=== PATIENT | female | born 1965 | race Caucasian/White ===

== ENCOUNTER 2018-07-05 13:01 | Emergency (ER) | payer OTHER ==
--- NOTE | 2018-07-05 13:04 | PDOC ---
History of Present Illness - General Chief Complaint: Laceration Stated Complaint: RIGHT THUMB CUT Time Seen by Provider: 07/05/18 13:04 - History of Present Illness Initial Comments: 53yo F presenting with right thumb laceration. Patient was cutting an eggplant with a kitchen mandolin when the tip of her thumb was sliced and started bleeding. She applied pressure to the area. No previous injury to finger or hand. Endorses normal range of motion and sensation. No numbness or tingling. Denies anticoagulant use. Patient is right-handed. Unknown when last tetanus shot was. Past History - Past Medical History Allergies/Adverse Reactions: Allergies Allergy/AdvReac Type Severity Reaction Status Date / Time No Known Allergies Allergy Verified 07/05/18 13:09 Home Medications: Ambulatory Orders Nebivolol HCl [Bystolic] 2.5 mg PO DAILY 07/05/18 Paroxetine HCl [Paxil] 20 mg PO DAILY 07/05/18 Review of Systems - Review of Systems Comments:: Constitutional: no fever, no chills Cardiovascular: no chest pain Respiratory: no shortness of breath Gastrointestinal: no abdominal pain, no nausea, no vomiting Skin: no rash, no itching Neurologic: no headache, no dizziness *Physical Exam - Physical Exam Comments: General: Awake, alert, and fully oriented, in no acute distress Head: no signs of trauma Eyes: EOMI ENT: Moist mucus membranes, Neck: Normal ROM, supple Lungs: Lungs clear, Normal breath sounds Cardio: Regular rhythm, S1 and S2 present Abdomen: Soft, nontender Extremities: Normal range of motion, Distal pulses present; 7mm x 3mm laceration on distal phalange of R. thumb with bleeding; Nail bed intact, absent foreign body. Neg bony visualization/deformity. Radial pulse intact. Neg snuff box tenderness. Normal ROM. SKIN: Warm, Dry, normal turgor Neurologic: Cranial nerves II through XII grossly intact. Normal speech Medical Decision Making - Medical Decision Making 53yo F presenting with thumb laceration -surgicel and wound dressing: wound achieved hemostasis; patient tolerated procedure well. -Boostrix *DC/Admit/Observation/Transfer Diagnosis at time of Disposition: Laceration - Discharge Dispostion Disposition: HOME Condition at time of disposition: Improved - Referrals Referrals: Delroy Haji MD [Primary Care Provider] - - Patient Instructions Printed Discharge Instructions: DI for Laceration Repair Additional Instructions: You came to the ED for laceration of your right thumb. The wound was cleaned and you received surgicel Keep the area clean. RETURN to the ED if you experience: redness or hardness around the wound, pain or tenderness, a red streak, yellow or green discharge oozing from the wound, fever or chills. - Post Discharge Activity
[2018-07-05 13:19] VITALS: BP 135/85; PULSE 68; TEMP 98.5; BMI 25.8
[2018-07-05] MEDS ORDERED: DIPHTH,PERTUSS(ACELL),TET 0.5 ML DISP.SYRIN IM ONE (13:20)
--- NOTE | 2018-07-05 13:32 | PDOC ---
Attending Attestation - Resident Resident Name: Sheila Cuevas - ED Attending Attestation I have performed the following: I have examined & evaluated the patient, The case was reviewed & discussed with the resident, I agree w/resident's findings & plan, Exceptions are as noted - HPI HPI: 07/05/18 13:28 53 yo F s/p injury to the Right Thumb while using the mandolin Soft tissue defect and bleeding noted since then - Physicial Exam PE: 07/05/18 13:29 Awake and alert, oriented x 3 Right thumb radial side of the thumb with soft tissue defect (+) bleeding noted 2+ RP, 2+ UP sensation in tact - Medical Decision Making 07/05/18 13:30 Laceration to the thumb Wound irrigated thoroughly Boostrix given surgicel to the area of bleeding D/c home Local wound care clinical Impression: laceration, initial presentation
== END 2018-07-05 13:59 | disposition home or self-care (01) ==
LOC: FER 13:01
PROC: 0HQFXZZ Repair Right Hand Skin, External Approach (ICD-10-PCS; principal; 2018-07-05)
PROC: 3E0234Z Introduction of Serum, Toxoid and Vaccine into Muscle, Percutaneous Approach (ICD-10-PCS; 2018-07-05)
DX: S61.011A Laceration without foreign body of right thumb without damage to nail, initial encounter (principal); W26.0XXA Contact with knife, initial encounter; Y93.G1 Activity, food preparation and clean up; Y92.000 Kitchen of unspecified non-institutional (private) residence as the place of occurrence of the external cause
CPT/HCPCS: 90715; 99282-25

== ENCOUNTER 2022-09-12 04:56 | Day surgery (SDC) | payer OTHER ==
[2022-09-08 08:07] VITALS: BMI 27.3
[2022-09-12] MEDS ORDERED: EPINEPHrine 1:10,000 (P-F SYR) 1 MG/10 ML DISP.SYRIN ONE (10:03)
[2022-09-12 10:24] VITALS: BP 114/59; PULSE 81; RESP 16
[2022-09-12 12:38] VITALS: TEMP 98
== END 2022-09-12 10:42 | disposition home or self-care (01) ==
LOC: JASU-ENDO 04:56
PROVIDERS: ATTEND Internal Medicine Gastroenterology
PROC: 0DBL8ZX Excision of Transverse Colon, Via Natural or Artificial Opening Endoscopic, Diagnostic (ICD-10-PCS; 2022-09-12)
PROC: 0DBN8ZX Excision of Sigmoid Colon, Via Natural or Artificial Opening Endoscopic, Diagnostic (ICD-10-PCS; 2022-09-12)
PROC: 0DBP8ZX Excision of Rectum, Via Natural or Artificial Opening Endoscopic, Diagnostic (ICD-10-PCS; 2022-09-12)
PROC: 0DBF8ZX Excision of Right Large Intestine, Via Natural or Artificial Opening Endoscopic, Diagnostic (ICD-10-PCS; 2022-09-12)
PROC: 0DBB8ZX Excision of Ileum, Via Natural or Artificial Opening Endoscopic, Diagnostic (ICD-10-PCS; 2022-09-12)
PROC: 0DBM8ZX Excision of Descending Colon, Via Natural or Artificial Opening Endoscopic, Diagnostic (ICD-10-PCS; principal; 2022-09-12 08:45)
DX: Z12.11 Encounter for screening for malignant neoplasm of colon (principal); D12.7 Benign neoplasm of rectosigmoid junction; K63.89 Other specified diseases of intestine; K64.8 Other hemorrhoids; D12.8 Benign neoplasm of rectum
CPT/HCPCS: 88305-TC

== ENCOUNTER 2022-11-23 04:06 | Day surgery (SDC) | payer OTHER ==
[2022-11-21 12:33] VITALS: BMI 27.3
[2022-11-23 10:09] VITALS: TEMP 98.2
[2022-11-23 11:00] VITALS: BP 126/73; PULSE 57; RESP 17
== END 2022-11-23 11:00 | disposition home or self-care (01) ==
LOC: JASU-ENDO 04:06
PROVIDERS: ATTEND Internal Medicine Gastroenterology
PROC: 0DBP8ZX Excision of Rectum, Via Natural or Artificial Opening Endoscopic, Diagnostic (ICD-10-PCS; principal; 2022-11-23 09:15)
DX: Z87.19 Personal history of other diseases of the digestive system (principal); K62.1 Rectal polyp; K64.8 Other hemorrhoids
CPT/HCPCS: 88305-TC; 88342-TC

== ENCOUNTER → 2023-10-04 | Day surgery (SDC) | payer OTHER | END | disposition home or self-care (01) | LOC: FMAMMOTONE 08:39 | PROVIDERS: ATTEND Registered Nurse | PROC: 0HBU3ZX Excision of Left Breast, Percutaneous Approach, Diagnostic (ICD-10-PCS; principal; 2023-10-04) | DX: D05.12 Intraductal carcinoma in situ of left breast (principal); N64.1 Fat necrosis of breast; N60.32 Fibrosclerosis of left breast; N64.89 Other specified disorders of breast | CPT/HCPCS: 19081; 76098-TC-FY; 87899; 88305-TC; 88342-TC; A4648 ==

== ENCOUNTER 2024-01-09 04:17 | Day surgery (SDC) | payer OTHER ==
[2024-01-03 16:03] VITALS: BMI 25.9
[2024-01-09] MEDS ORDERED: LIDOCAINE HCL 1%, 10 MG/ML (20ML VIAL) ONE (07:15)
[2024-01-09] MEDS ORDERED: ISOSULFAN BLUE 50 MG/5 ML VIAL SQ ONE (07:15)
[2024-01-09] MEDS ORDERED: LIDOCAINE 1%/EPI 1:100000 (20 ML MULTI DOSE VIAL) ONE (07:16)
[2024-01-09] MEDS ORDERED: DEXAMETHASONE SOD PHOSPHATE 4 MG/1 ML VIAL ONE (10:16)
[2024-01-09] MEDS ORDERED: ONDANSETRON 4 MG/2 ML VIAL ONE (10:16)
[2024-01-09] MEDS ORDERED: LIDOCAINE HCL/PF 2% SDV 5ML VIAL ONE (10:16)
[2024-01-09] MEDS ORDERED: PROPOFOL 60 ML ONE (10:17)
[2024-01-09] MEDS ORDERED: ONDANSETRON 4 MG/2 ML VIAL IVPUSH PRN ×2 (10:36→13:31)
[2024-01-09] MEDS ORDERED: ROCURONIUM BROMIDE 50 MG/5 ML SYRINGE ONE (10:42)
[2024-01-09] MEDS ORDERED: MIDAZOLAM HCL 2 MG/2 ML SINGLE DOSE VIAL ONE (10:42)
[2024-01-09] MEDS ORDERED: FENTANYL CITRATE/PF 50 MCG/ML VIAL ONE ×3 (10:42→12:15)
[2024-01-09] MEDS: ceFAZolin SODIUM 1 GM VIAL IVPB ONE ×2 (10:56→11:06)
[2024-01-09] MEDS ORDERED: PROPOFOL 40 ML ONE (12:28)
[2024-01-09] MEDS ORDERED: ALBUTEROL SO4 0.083% IH SOL 2.5 MG/3 ML VIAL.NEB. NEB ONE (13:28)
[2024-01-09] MEDS: ALBUTEROL SO4 0.083% IH SOL 2.5 MG/3 ML VIAL.NEB. NEB ONE (13:30)
[2024-01-09] MEDS ORDERED: oxyCODONE HCL 5 MG TABLET PO PRN (13:33)
[2024-01-09] MEDS: ACETAMINOPHEN 325 MG TABLET (FP) PO SCH (13:45)
[2024-01-09] MEDS: LACTATED RINGERS SOLUTION 1,000 ML IV SCH (14:27)
[2024-01-09] MEDS ORDERED: ACETAMINOPHEN 325 MG TABLET (FP) ONE (19:32)
[2024-01-09] MEDS: oxyCODONE HCL 5 MG TABLET PO PRN (19:35)
[2024-01-09] MEDS: ACETAMINOPHEN 500 MG TABLET (FP) PO ONE (19:39)
[2024-01-09] MEDS: CEFAZOLIN 2 GM in DEXTROSE 5%-WATER - 50 ML IVPB SCH (19:45)
[2024-01-10 02:20] VITALS: RESP 18
[2024-01-10 08:24] LABS: POTASSIUM 4.3 mmol/L (3.5-5.1)
[2024-01-10 08:34] LABS: HEMATOCRIT 35.7 % (32.4-45.2); HEMOGLOBIN 12.3 GM/dL (10.7-15.3); MCH 34.4 pg (25.7-33.7); MCHC 34.3 g/dl (32.0-36.0); MEAN CELL VOLUME 100.1 fl (80-96); MEAN PLT VOLUME 7.7 fl (7.5-11.1); PLATELET COUNT 258 10^3/uL (134-434); RBC 3.56 M/mm3 (3.60-5.2); RDW 14.3 % (11.6-15.6); WHITE BLOOD COUNT 7.8 K/mm3 (4.0-10.0)
[2024-01-10 08:35] LABS: CALCIUM 8.3 mg/dL (8.5-10.1)
[2024-01-10 08:36] LABS: ALBUMIN 2.8 g/dl (3.4-5.0); BLOOD UREA NITROGEN 10.4 mg/dL (7-18)
[2024-01-10 08:39] LABS: CREATININE 0.7 mg/dL (0.55-1.3)
[2024-01-10 08:40] LABS: BILIRUBIN,TOTAL 0.3 mg/dL (0.2-1)
[2024-01-10 08:41] LABS: TOT PROT 5.9 g/dl (6.4-8.2)
[2024-01-10] MEDS: NEBIVOLOL 2.5 MG TABLET (FP) PO SCH (09:56)
[2024-01-10] MEDS: PARoxetine HCL 20 MG TABLET PO SCH (09:58)
[2024-01-10 16:09] VITALS: BP 111/74; PULSE 69; TEMP 98.1
== END 2024-01-10 15:45 | disposition home or self-care (01) ==
LOC: JASUSAT 04:17 → JASU-SURG 04:17 → EDSTATUS 10:00 → J6S 20:15 → JASUSAT 01-10 15:45
PROVIDERS: ATTEND Internal Medicine
PROC: 0HTU0ZZ Resection of Left Breast, Open Approach (ICD-10-PCS; principal; 2024-01-09 10:00)
PROC: 0HHU0NZ Insertion of Tissue Expander into Left Breast, Open Approach (ICD-10-PCS; 2024-01-09 10:00)
DX: C50.912 Malignant neoplasm of unspecified site of left female breast (principal)
CPT/HCPCS: 36415; 80053; 85027; 86850; 86900; 86901; 88307-TC; 88309-TC; 88341-TC; 88342; 94640; 94760; Q4116

== ENCOUNTER 2024-05-07 06:13 | Day surgery (SDC) | payer OTHER ==
[2024-05-05 14:21] VITALS: BMI 26.6
[2024-05-07] MEDS ORDERED: MIDAZOLAM HCL 2 MG/2 ML SINGLE DOSE VIAL ONE (07:18)
[2024-05-07] MEDS ORDERED: ONDANSETRON 4 MG/2 ML VIAL ONE (07:18)
[2024-05-07] MEDS ORDERED: DEXAMETHASONE SOD PHOSPHATE 4 MG/1 ML VIAL ONE (07:18)
[2024-05-07] MEDS ORDERED: LIDOCAINE HCL/PF 2% SDV 5ML VIAL ONE (07:18)
[2024-05-07] MEDS ORDERED: ceFAZolin SODIUM 1 GM VIAL ONE (07:18)
[2024-05-07] MEDS ORDERED: PROPOFOL 20 ML ONE (07:18)
[2024-05-07] MEDS ORDERED: BUPIVACAINE HCL/PF 0.25% (2.5MG/ML) 10 ML VIAL ONE (08:02)
[2024-05-07] MEDS: BUPIVACAINE HCL/PF 0.25% (2.5MG/ML) 10 ML VIAL IJ ONE (09:03)
[2024-05-07] MEDS ORDERED: oxyCODONE HCL 5 MG TABLET PO PRN (09:23)
[2024-05-07] MEDS ORDERED: ONDANSETRON 4 MG/2 ML VIAL IVPUSH PRN (09:23)
[2024-05-07] MEDS ORDERED: LACTATED RINGERS SOLUTION 1,000 ML IV SCH (09:30)
[2024-05-07 11:02] VITALS: TEMP 97.9
[2024-05-07 11:37] VITALS: BP 124/64; PULSE 73; RESP 18
== END 2024-05-07 11:42 | disposition home or self-care (01) ==
LOC: FASU 06:13
PROVIDERS: ATTEND Plastic Surgery
PROC: 0HPU0NZ Removal of Tissue Expander from Left Breast, Open Approach (ICD-10-PCS; principal; 2024-05-07 08:31)
DX: Z85.3 Personal history of malignant neoplasm of breast (principal); Z90.12 Acquired absence of left breast and nipple; Z45.812 Encounter for adjustment or removal of left breast implant
CPT/HCPCS: 19342; 19371; L8600; 94760

== ENCOUNTER 2024-09-12 08:16 | Day surgery (SDC) | payer OTHER ==
[2024-09-09 14:22] VITALS: BMI 25.7
[~2024-09-12 08:16] MED LIST: LACTATED RINGERS SOLUTION 1,000 ML IV SCH; ONDANSETRON 4 MG/2 ML VIAL IVPUSH PRN; oxyCODONE HCL 5 MG TABLET PO PRN
[2024-09-12] MEDS ORDERED: DEXAMETHASONE SOD PHOSPHATE 4 MG/1 ML VIAL ONE (09:01)
[2024-09-12] MEDS ORDERED: MIDAZOLAM HCL 2 MG/2 ML SINGLE DOSE VIAL ONE (09:02)
[2024-09-12] MEDS ORDERED: BUPIVACAINE HCL/PF 2.5 MG/ML - 30 ML VIAL IJ ONE (09:03)
[2024-09-12] MEDS ORDERED: BUPIVACAINE HCL/PF 0.25% (2.5MG/ML) 10 ML VIAL ONE (09:03)
[2024-09-12] MEDS ORDERED: METHYLENE BLUE 50 MG/10 ML AMPUL ONE (11:45)
[2024-09-12] MEDS ORDERED: PROPOFOL 20 ML ONE (12:07)
[2024-09-12] MEDS ORDERED: SUGAMMADEX SODIUM 200 MG/2 ML VIAL ONE (13:25)
[2024-09-12 15:04] VITALS: RESP 18; TEMP 97.3
[2024-09-12 16:09] VITALS: BP 123/72
[2024-09-12 16:14] VITALS: PULSE 81
== END 2024-09-12 16:17 | disposition home or self-care (01) ==
LOC: FASU 08:16
PROVIDERS: ATTEND Plastic Surgery
PROC: 0HQT0ZZ Repair Right Breast, Open Approach (ICD-10-PCS; 2024-09-12)
PROC: 0HBT0ZZ Excision of Right Breast, Open Approach (ICD-10-PCS; principal; 2024-09-12 11:39)
DX: N65.1 Disproportion of reconstructed breast (principal)
CPT/HCPCS: 88305-TC; 94760; Q9968